=== PATIENT | female | born 1945 | race Caucasian/White ===

== ENCOUNTER 2018-04-24 06:26 | Day surgery (SDC) | payer OTHER ==
[2018-04-23 14:16] LABS: Absolute Lymphocytes (CBC) 2.4 K/uL (0.7-4.9); Absolute Monocytes 0.4 K/uL (0.1-1.3); Basophils % 0.6 % (0-1.3); Eosinophils % 6.3 % (0-4.4); Hematocrit 31.6 % (36.0-45.0); MCH 33.2 pg (27.0-35.0); MCV 102.9 fL (80-100); MPV 9.9 fL (7.6-11.3); Monocytes % 8.1 % (3.3-12.3); RBC Red Blood Cell Count 3.07 M/uL (3.86-4.86)
[2018-04-23 14:24] LABS: Protime INR 0.93
--- NOTE | 2018-04-23 14:27 | RAD REPORT ---
EXAM DESCRIPTION: Toney Basilio (2 Views)04/23/2018 1:43 pm CLINICAL HISTORY: Hypertension/preop for foot surgery COMPARISON: June 2017 FINDINGS: The lungs appear clear of acute infiltrate. The heart is normal size IMPRESSION: No acute abnormalities displayed
[2018-04-23 14:32] LABS: Urine Appearance CLEAR; Urine Bilirubin NEGATIVE (NEG); Urine Blood NEGATIVE (NEG); Urine Color YELLOW; Urine Glucose NEGATIVE (NEG); Urine Protein TRACE (NEG); Urine Specific Gravity 1.025 (1.005-1.030); Urine Urobilinogen 0.2 mg/dL (0.2-1.0); Urine pH 5.5 (5.0-7.0)
[2018-04-23 14:46] LABS: Urine Microscopic Reflex ORDER UMIC
[2018-04-23 14:58] LABS: Urine Bacteria <20 /HPF (<20); Urine Culture Reflex Order NOT NEEDED; Urine RBC <5 /HPF (NONE SEEN)
[2018-04-24] MEDS ORDERED: Ringers Lactate 1,000 ML IV ONE ×2 (06:38→09:17)
[2018-04-24] MEDS ORDERED: CEFAZOLIN/SWI 1gm 1 GM/10 ML SYR ONE (06:38)
--- NOTE | 2018-04-24 06:49 | EKG ---
Test Date: 2018-04-23 Test Time: 13:34:03 Tube Filler: CLAUDIA MEASUREMENT RESULTS: Intervals: Rate: 53 ID: [id number] QRSD: 98 QT: 458 QTc: 429 [place]: P: 47 ID: [id number] QRS: 39 T: 39 INTERPRETIVE STATEMENTS: Sinus bradycardia Otherwise normal ECG Compared to ECG 06/16/2017 15:42:01 Sinus rhythm no longer present Atrial premature complex(es) no longer present Electronically Signed On 04-24-18 06:48:38 CDT by Benedicto Guerra
[2018-04-24] MEDS ORDERED: DEXAMETHASONE 4 MG/ML VIAL ONE (07:10)
[2018-04-24] MEDS ORDERED: LIDOCAINE 1% 20 ML MDV ONE (07:10)
[2018-04-24] MEDS ORDERED: BUPIVACAINE 0.5% Inj,MDV 50 mL VIAL ONE (07:10)
[2018-04-24] MEDS ORDERED: FENTANYL CITR 100 MCG/2 ML ONE (07:20)
[2018-04-24] MEDS ORDERED: MIDAZOLAM HCL 2 MG/2 ML INJ ONE (07:20)
[2018-04-24] MEDS ORDERED: PROPOFOL 200 MG/20 ML VIAL IV ONE (07:20)
[2018-04-24] MEDS ORDERED: LIDOCAINE 2% MPF 5 ML VIAL ONE (07:20)
[2018-04-24] MEDS ORDERED: ONDANSETRON HCL 40 MG/20 ML VIAL ONE (07:21)
[2018-04-24] MEDS ORDERED: ONDANSETRON 4 MG/2 ML VIAL ONE (08:32)
[2018-04-24 10:51] VITALS: BP 149/62; TEMP 97.1; O2SAT 97
== END 2018-04-24 11:15 | disposition home or self-care (01) ==
LOC: OR 06:26
PROVIDERS: ATTEND Podiatrist Foot Surgery
PROC: 0SRM0JZ Replacement of Right Metatarsal-Phalangeal Joint with Synthetic Substitute, Open Approach (ICD-10-PCS; principal; 2018-04-24 07:30)
DX: M21.611 Bunion of right foot (principal); M20.11 Hallux valgus (acquired), right foot; M77.51 Other enthesopathy of right foot and ankle; I10 Essential (primary) hypertension; R00.0 Tachycardia, unspecified; K44.9 Diaphragmatic hernia without obstruction or gangrene; K21.9 Gastro-esophageal reflux disease without esophagitis; E03.9 Hypothyroidism, unspecified
CPT/HCPCS: 28291; 36415; 71046; 85025; 85610; 85730; 88300; 93005; J0690; J2250; J2405; J3010; 81003; 81015